=== PATIENT | female | born 1940 | race Caucasian/White ===

== ENCOUNTER 2018-05-15 09:09 | Observation (INO) ==
--- NOTE | 2018-05-15 09:34 | Emergency Department Note ---
Addendum entered and electronically signed by Dioni Ramsey DO 05/15/18 12:09: After discussing again with the patient, she now decides to stay. Will admit the patient for CP r/o ACS. Original Note: Disposition Clinical Impression: Chest pain Disposition: Home, Self-Care Condition: Fair Time of Disposition: 12:04 Chest Pain HPI - General Chief Complaint: ED Chest Pain Stated Complaint: CP Time Seen by Provider: 05/15/18 09:22 Source: patient Limitations: no limitations Vital Signs Reviewed: Yes Nursing Notes Reviewed: Yes - History of Present Illness HPI Narrative: 78-year-old female presents from home for evaluation of chest pain onset 2 days ago. Describescourse of her symptoms never compland unchanged with exertion. She described her symptoms began in his left jaw a left-sided chest ache with radiation to her left back.she did have associated nausea. patient has taken a full strength aspirin 2 this morning. Patient's is admitted to this facility. she has been traveling from home to hospital and back with little sleep. PMH: Hypertension, hyperlipidemia family history: Father had AZ at 61, paternal uncle had AZ in 40s. Patient had a heart catheter approximately 10 years ago that was reportedly clean ROS: Pos: as above Neg: fever, chills, vomiting, palpitations, trauma, abdominal pain, dysuria. Severity scale (1-10): 3 - Related Data Home Medications Medication Instructions Recorded Confirmed Aspirin [Adult Low Dose Aspirin EC] 81 mg PO DAILY 06/02/15 10/10/15 Previous Rx's Medication Instructions Recorded Albuterol Sulfate [Albuterol 2 puff IH QID #1 inhaler 04/13/16 Inhaler] Acetaminophen [Tylenol] 500 mg PO Q6HR PRN #20 tablet 08/16/17 Amoxicillin/Clavulanate [Augmentin] 500 mg PO BIDWM 5 Days #10 tablet 12/11/17 Phenazopyridine [Pyridium] 100 mg PO TID 2 Days #6 tablet 12/11/17 Nitrofurantoin Monohyd/M-Cryst 100 mg PO BID #14 capsule 12/14/17 [Macrobid 100 mg Capsule] Allergies Allergy/AdvReac Type Severity Reaction Status Date / Time ciprofloxacin Allergy See Verified 12/11/17 16:41 Comments Sulfa (Sulfonamide Allergy See Verified 12/11/17 16:41 Antibiotics) Comments Chest Pain PMH - Past Medical History Medical history: Reports: asthma, COPD, GERD, hyperlipidemia, hypertension, other Surgical history: Reports: breast surgery, cholecystectomy Psychiatric history: Reports: anxiety - Social History Smoking Status: Never smoker Alcohol use: Reports: none Drug use: Reports: none Physical Exam Vital Signs Reviewed General: Patient is alert, oriented, and in no acute distress. Head: atraumatic, normocephalic Eye: normal appearance, PERRL, EOMI, no scleral icterus, no conjunctival injection ENT: mucous membranes moist, normal external ear exam Neck: normal inspection, trachea midline, full ROM Chest: normal inspection, symmetric chest rise Respiratory: Good respiratory effort. Bilateral breath sounds are clear without wheezing, crackles, or rhonchi. Cardiovascular: Regular rate and rhythm. No clicks, rubs, gallops, or murmors. Normal heart sounds. Abdomen: Bowel sounds present normoactive. Abdomen is soft, nondistended, and nontender. No guarding or rebound. No organomegaly noted. Musculoskeletal: Spontaneously moving all extremities. Skin: warm, dry, intact. Neuro: GCS 15. No focal neurologic deficits observed. Psych: Patient's affect is appropriate for situation. - General Limitations: no limitations General appearance: alert, in no apparent distress Course Course Narrative: concern both from patient's symptoms, her age, cardiac risk factors of HTN and HLD, as well as family history. eKG dated O2 April 2018 at 09:50 interpreted as sinus rhythm at a rate of 84. CO 146, QRS 98, QTc 464. Normal axis. Non-specific STT changes. No previous EKG for comparison. Serum hematology unremarkable. Serum chemistry is unremarkable; initial troponin normal. This is not reassuring as patient's symptoms could reflect unstable angina. My attending and I discussed the above with the patient. She was recommended admission to the hosptal for continued evaluation and monitoring. She refuses. We re-iterated and re-clarified our concerns; she expressed understanding and again refused admission. Patient is of sound mind and expressed understanding of our concerns. She is leaving AMA. Vital Signs Temperature 97.7 F 05/15/18 09:16 Pulse Rate 101 05/15/18 09:16 Respiratory Rate 20 05/15/18 09:16 Blood Pressure 131/83 05/15/18 09:16 O2 Sat by Pulse Oximetry 94 05/15/18 09:16 Temperature 97.7 F 05/15/18 09:16 Pulse Rate 67 05/15/18 10:49 Respiratory Rate 19 05/15/18 10:49 Blood Pressure 119/58 05/15/18 10:49 O2 Sat by Pulse Oximetry 97 05/15/18 10:49 Oxygen Delivery Oxygen Delivery Room Air Chest Pain - Lab Data Result diagrams: 05/15/18 10:32 05/15/18 10:32 Lab Results 05/15/18 05/15/18 05/15/18 Range/Units 10:32 10:32 10:32 WBC 8.3 (4.3-11.1) K/mcL RBC 4.12 (3.82-4.97) M/mcL Hgb 13.1 (11.5-15.4) g/dL Hct 38.6 (35.3-44.9) % MCV 93.7 (83.0-100.0) fL MCH 31.8 (28.0-33.3) pg MCHC 33.9 (31.6-35.5) g/dL RDW 12.2 (11.5-14.5) % Plt Count 231 (140-400) K/mcL MPV 9.2 L (9.4-12.4) fL Immature Gran % 0.2 (0-4) % Seg Neutrophils % 54.8 % Lymphocytes % 31.3 % Monocytes % 7.1 % Eosinophils % 6.1 % Basophils % 0.5 % Neutrophils # 4.6 (1.6-8.9) K/mcL Lymphocytes # 2.6 (0.6-4.6) K/mcL Monocytes # 0.6 (0.0-1.3) K/mcL Eosinophils # 0.5 (0.0-0.6) K/mcL Basophils # 0.0 (0.0-0.2) K/mcL PT 10.9 (9.4-12.1) Seconds INR 1.0 APTT 31.7 (26.0-36.0) Seconds Sodium 138 (136-145) mEq/L Potassium 4.0 (3.5-5.1) mEq/L Chloride 101 (98-107) mEq/L Carbon Dioxide 29 (23-29) mEq/L BUN 15 (8-23) mg/dL Creatinine 1.01 (0.60-1.20) mg/dL Est GFR ( Amer) > 60 (> 60) Est GFR (Non-Af Amer) 53 L (> 60) BUN/Creatinine Ratio 15 (6-26) Glucose 107 H (70-105) mg/dL Calculated Osmolality 287 (280-300) Calcium 9.4 (8.6-10.3) mg/dL Troponin I < 0.03 (< 0.04) ng/mL Heart Score - Score History: Moderately Suspicious EKG: Non Specific repolarisation Disturbance Age: Greater than 65 Risk Factors: Equal/Greater than 3 risk factor or history of atherosclerotic disease Troponin: Less than normal limit HEART Score Total: 6 Attestation Statement - Attestation Attestation: I, Jack Melendez, examined this patient and my medical decision-making was reviewed with the SEAM STEAMER/PA/Advanced Practice Nurse/Resident Physician. I agree with the documented findings, disposition and treatment plan as described except to the extent set forth below. 78-year-old female presents emergency Department with concerns of acute onset chest pain. Patient states pain is worse with exertion, it radiates to the left jaw. Patient has been under increased stress lately as her has been hospitalized. Patient reported associated lightheadedness. No history of previous cardiac disease. Patient denies syncopal episode. Initial troponin negative. Patient agreed to stay in the hospital for further care and evaluation.
[2018-05-15 10:43] LABS: Basophils % 0.5 %; Eosinophils # 0.5 K/mcL (0.0-0.6); Eosinophils % 6.1 %; Hematocrit 38.6 % (35.3-44.9); Hemoglobin 13.1 g/dL (11.5-15.4); Immature Granulocytes % 0.2 % (0-4); Lymphocytes # 2.6 K/mcL (0.6-4.6); Lymphocytes % 31.3 %; Mean Corpuscular HGB Conc 33.9 g/dL (31.6-35.5); Mean Corpuscular Hemoglobin 31.8 pg (28.0-33.3); Mean Corpuscular Volume 93.7 fL (83.0-100.0); Mean Platelet Volume 9.2 fL (9.4-12.4); Monocytes # 0.6 K/mcL (0.0-1.3); Monocytes % 7.1 %; Neutrophils # 4.6 K/mcL (1.6-8.9); Platelet Count 231 K/mcL (140-400); Red Blood Count 4.12 M/mcL (3.82-4.97); Red Cell Distribution Width 12.2 % (11.5-14.5); Segmented Neutrophils % 54.8 %
[2018-05-15 10:51] LABS: Prothrombin Time 10.9 Seconds (9.4-12.1)
[2018-05-15 10:53] LABS: Activated Partial Thrombo Time 31.7 Seconds (26.0-36.0)
[2018-05-15 11:03] LABS: BUN/Creatinine Ratio 15 (6-26); Blood Urea Nitrogen 15 mg/dL (8-23); Calcium 9.4 mg/dL (8.6-10.3); Carbon Dioxide 29 mEq/L (23-29); Chloride 101 mEq/L (98-107); Glucose 107 mg/dL (70-105); Osmolality,Calculated 287 (280-300); Sodium 138 mEq/L (136-145); eGFR For Non-African Americans 53 (> 60)
[2018-05-15 11:04] LABS: Troponin I < 0.03 ng/mL (< 0.04)
[2018-05-15] MEDS ORDERED: Naloxone 0.4 MG/ML INJ IVP PRN (12:54)
--- NOTE | 2018-05-15 14:01 | Internal Med History&Physical ---
Date of Encounter: 05/15/18 Time of Encounter: 13:57 Internal Medicine - H&P: HPI Chief complaint: chest pain Admitted From: Home Plans for Post Hospital Care: Home History of present illness: Ms. Ventura is a 78 year old female with history of COPD not on home oxygen, GERD, hypertension and hyperlipidemia presented to the emergency department with complaint of chest pain. As per patient her chest pain started about 2 days ago while at rest. It is left-sided, pressure-like, radiating to the little left jaw, 5 out of 10 on severity, alleviated with aspirin. She reports that now her chest pain has been occurring also on exertion. She denies diaphoresis however does report nausea 1 the chest pain occurs. Last episode of the chest pain was this morning she took 2 baby aspirins which relieved the chest pain and decided to come to the emergency department for further evaluation. As per patient her is admitted to this facility and she is been traveling back and forth and under stress with little sleep. In addition she has a new puppy at home that she is worried about leaving alone. She denies fever, chills, palpitations, headache, syncope, loss of consciousness, chest trauma, prolonged immobilization, leg edema, PND or orthopnea. While in the emergency department she was found to have negative troponins EKG showed sinus rhythm with low voltages. She was endorsed for admission for further evaluation of her chest pain. Past Med Surg Social Fam HX - Past Medical History Medical history: asthma, COPD, GERD, hyperlipidemia, hypertension, other Additional medical history: AAA Psychiatric history: anxiety - Past Surgical History Surgical History: breast surgery, cholecystectomy, hysterectomy Additional surgical history: Bladder tact, heart cath - Social History Smoking Status: Never smoker Smokeless Tobacco Status: No Alcohol use: none Drug use: none Internal Medicine - H&P: Meds Albuterol Sulfate [Ventolin Hfa] 18 gm IH PRN PRN 05/15/18 [History] Fluticasone/Salmeterol [Advair Hfa 115-21 Mcg Inhaler] 12 gm IH BID 05/15/18 [History] Omeprazole [PriLOSEC] 20 mg PO DAILY 05/15/18 [History] Rosuvastatin Calcium [Crestor] 10 mg PO HS 05/15/18 [History] Verapamil HCl [Verapamil ER] 240 mg PO DAILY 05/15/18 [History] 3 Allergy/AdvReac Type Severity Reaction Status Date / Time ciprofloxacin Allergy See Verified 12/11/17 16:41 Comments Sulfa (Sulfonamide Allergy See Verified 12/11/17 16:41 Antibiotics) Comments All Systems PM: A 10-system review of systems was performed and is negative for pertinent findings except as documented above in the HPI. - Constitutional Vitals: Temp Pulse Resp BP Pulse Ox 97.8 F 61 18 131/69 96 05/15/18 13:55 05/15/18 13:55 05/15/18 13:55 05/15/18 13:55 05/15/18 13:55 Exam: General: Patient is alert, oriented, no acute distress, Head: atraumatic, normocephalic, Eye: normal appearance, PERRL, no scleral icterus, no conjunctival injection ENT: mucous membranes moist, normal external ear exam Neck: normal inspection, trachea midline, full ROM, no carotid bruits Chest: normal inspection, symmetric chest rise Respiratory: Good respiratory effort. Bilateral breath sounds are clear without wheezing, crackles, or rhonchi. Cardiovascular: Regular rate and rhythm. s1 and s2 No clicks, rubs, gallops, or murmors. Abdomen: Bowel sounds present normoactive x-4 quadrants. Abdomen is soft, nondistended. no Epigastric tenderness. No guarding or rebound. No organomegaly noted, obese musculoskeletal: Spontaneously moving all extremities. no edema, no calf tenderness Skin: warm, dry, intact. Neuro: Alert and oriented x4. No focal deficit Psych: Patient's affect is normal Internal Med - H&P Results - Labs CBC & Chem 7: 05/15/18 10:32 05/15/18 10:32 Labs: Short CBC 05/15/18 Range/Units 10:32 WBC 8.3 (4.3-11.1) K/mcL Hgb 13.1 (11.5-15.4) g/dL Hct 38.6 (35.3-44.9) % Plt Count 231 (140-400) K/mcL Neutrophils # 4.6 (1.6-8.9) K/mcL BMP 05/15/18 10:32 Sodium 138 Potassium 4.0 Chloride 101 Carbon Dioxide 29 BUN 15 Creatinine 1.01 Glucose 107 H Calcium 9.4 Cardiac Enzymes 05/15/18 Range/Units 10:32 Troponin I < 0.03 (< 0.04) ng/mL - EKG Data -: EKG Interpreted by Myself (Normal sinus rhythm, low voltages, QTC of 464) - Impressions ITS Impressions Chest X-Ray 05/15/18 09:22 IMPRESSION: 1. No active pulmonary disease. D/ / Galindo Wolf MD / Galindo Wolf MD Interpreting Provider: Galindo Wolf MD - Assessment and plan (1) Chest pain, rule out acute myocardial infarction Current Visit: Yes Status: Acute Assessment and plan: Chest pain rule out ACS First troponin is negative continued to follow every 6 hours along with EKG 2 Aspirin 81 mg daily Continue with statins Echocardiogram Consider stress test in the a.m. Continue cardiac monitoring Consider cardiology evaluation based on above results Lipid panel, TSH in the morning (2) COPD (chronic obstructive pulmonary disease) Current Visit: Yes Status: Acute Assessment and plan: Not an exacerbation Continue with home inhalers Qualifiers: COPD type: unspecified COPD Qualified Code(s): J44.9 - Chronic obstructive pulmonary disease, unspecified (3) Hypertension Current Visit: Yes Status: Acute Assessment and plan: Continue with home medications of not contraindicated Qualifiers: Hypertension type: essential hypertension Qualified Code(s): I10 - Essential (primary) hypertension (4) Hyperlipidemia Current Visit: Yes Status: Acute Assessment and plan: Continue with home statin Lipid panel in the morning Qualifiers: Hyperlipidemia type: unspecified Qualified Code(s): E78.5 - Hyperlipidemia, unspecified (5) GERD (gastroesophageal reflux disease) Current Visit: Yes Status: Acute Assessment and plan: Continue with home dose PPI Qualifiers: Esophagitis presence: esophagitis presence not specified Qualified Code(s): K21.9 - Gastro-esophageal reflux disease without esophagitis (6) DVT prophylaxis Current Visit: Yes Status: Acute Assessment and plan: Heparin subcutaneous - Time Spent With Patient Total time spent is greater than 50% in coordination of care (as documented) at patient's floor/unit and/or counseling patient:
[2018-05-15] MEDS: *HR* Heparin 5,000 UNIT/ML VIAL SQ SCH ×2 (15:19→21:02)
[2018-05-15] MEDS ORDERED: Nitroglycerin 0.4 MG TAB.SUBL SL PRN (16:39)
[2018-05-15] MEDS: Budesonide/Formoterol 80/4.5 MDI IH SCH (20:29)
[2018-05-16 03:04] LABS: Basophils # 0.1 K/mcL (0.0-0.2); Eosinophils # 0.6 K/mcL (0.0-0.6); Eosinophils % 8.3 %; Hematocrit 36.3 % (35.3-44.9); Hemoglobin 12.1 g/dL (11.5-15.4); Immature Granulocytes % 0.3 % (0-4); Lymphocytes # 2.9 K/mcL (0.6-4.6); Lymphocytes % 39.9 %; Mean Corpuscular HGB Conc 33.3 g/dL (31.6-35.5); Mean Corpuscular Hemoglobin 31.6 pg (28.0-33.3); Mean Corpuscular Volume 94.8 fL (83.0-100.0); Mean Platelet Volume 9.5 fL (9.4-12.4); Monocytes # 0.6 K/mcL (0.0-1.3); Monocytes % 8.4 %; Neutrophils # 3.1 K/mcL (1.6-8.9); Platelet Count 213 K/mcL (140-400); Red Blood Count 3.83 M/mcL (3.82-4.97); Red Cell Distribution Width 12.2 % (11.5-14.5); Segmented Neutrophils % 42.1 %
[2018-05-16 03:20] LABS: BUN/Creatinine Ratio 19 (6-26); Blood Urea Nitrogen 19 mg/dL (8-23); Carbon Dioxide 28 mEq/L (23-29); Chloride 104 mEq/L (98-107); Chol/HDL Ratio 2.6 (0-4.9); Cholesterol 112 mg/dL (< 200); Glucose 103 mg/dL (70-105); HDL Cholesterol 43 mg/dL (40-59); LDL Cholesterol,Calculated 39 mg/dL (0-99); Magnesium 1.9 mg/dL (1.6-2.6); Osmolality,Calculated 293 (280-300); Phosphorous 4.3 mg/dL (2.7-4.5); Potassium 3.4 mEq/L (3.5-5.1); Sodium 140 mEq/L (136-145); Triglycerides 149 mg/dL (< 150); eGFR For Non-African Americans 55 (> 60)
[2018-05-16] MEDS: *HR* Heparin 5,000 UNIT/ML VIAL SQ SCH (05:17)
[2018-05-16] MEDS ORDERED: Regadenoson 0.4 MG/5 ML SYRINGE IVP ONE (08:10)
[2018-05-16] MEDS: Budesonide/Formoterol 80/4.5 MDI IH SCH (08:13)
[2018-05-16] MEDS ORDERED: Aspirin Enteric Coated 81 MG Tablet PO SCH (09:00)
[2018-05-16] MEDS ORDERED: Verapamil ER (24 HR) 240 MG TABLET.ER PO SCH (09:00)
--- NOTE | 2018-05-16 10:09 | Electrocardiograph Report ---
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
[2018-05-16 10:32] VITALS: BP 127/66
--- NOTE | 2018-05-16 14:44 | Discharge Summary ---
Orders not resulted at time of discharge: Pending orders 05/15/18 16:00 ECG 12 lead ECG [ECG] Routine 05/16/18 07:50 NM harjeet perf SPECT multi [NM] Routine Date of Encounter: 05/16/18 Time of Encounter: 14:41 - Discharge Diagnosis (1) Chest pain, rule out acute myocardial infarction Priority: Primary Status: Acute (2) COPD (chronic obstructive pulmonary disease) Priority: Secondary Status: Acute Qualifiers: COPD type: unspecified COPD Qualified Code(s): J44.9 - Chronic obstructive pulmonary disease, unspecified (3) Hypertension Priority: Secondary Status: Acute Qualifiers: Hypertension type: essential hypertension Qualified Code(s): I10 - Essential (primary) hypertension (4) Hyperlipidemia Priority: Secondary Status: Acute Qualifiers: Hyperlipidemia type: unspecified Qualified Code(s): E78.5 - Hyperlipidemia, unspecified (5) GERD (gastroesophageal reflux disease) Priority: Secondary Status: Acute Qualifiers: Esophagitis presence: esophagitis presence not specified Qualified Code(s): K21.9 - Gastro-esophageal reflux disease without esophagitis (6) DVT prophylaxis Priority: Secondary Status: Acute Hospital course: Ms. Ventura is a 78 year old female past medical history of COPD, GERD, hypertension, hyperlipidemia who came in complaining of chest pain for 2 days. Patient had recent stressors in life including being hospitalized. EKG did not show any ischemic changes. Troponin remained negative. Lipid panel and TSH unremarkable. Patient underwent nuclear stress test today. Patient anxious to leave the hospital. Spoke with cardiology(Dr Galan) who review the stress test before it was transcribed and interpreted that there were no signs of ischemia. She is in otherwise stable to be discharged home to continue her home medications. Discharge discussed with: patient, nurse, wellness consultant - Time Spent with Patient Total time spent providing and/or coordinating discharge services: Greater than 30 minutes (38) - Discharge Medications Prescriptions: Tio Aspirin Enteric Coated [Aspirin EC] 81 mg PO DAILY tablet. Continue Omeprazole [PriLOSEC] 20 mg PO DAILY Albuterol Sulfate [Ventolin Hfa] 18 gm IH PRN PRN PRN Reason: Shortness Of Breath Fluticasone/Salmeterol [Advair Hfa 115-21 Mcg Inhaler] 12 gm IH BID Verapamil HCl [Verapamil ER] 240 mg PO DAILY Rosuvastatin Calcium [Crestor] 10 mg PO HS Rosuvastatin Calcium [Crestor] 10 mg PO DAILY hydroCHLOROthiazide [Hydrochlorothiazide] 25 mg PO DAILY Promethazine/Codeine [Phenergan/Codeine] 5 ml PO Q6HR PRN PRN Reason: Cough Irbesartan [Avapro] 150 mg PO DAILY Olopatadine HCl [Patanol] 5 ml OP DAILY Clorazepate [Tranxene] 15 mg PO HS Home Medications: Albuterol Sulfate [Ventolin Hfa] 18 gm IH PRN PRN 05/15/18 [History] Clorazepate [Tranxene] 15 mg PO HS 05/15/18 [History] Fluticasone/Salmeterol [Advair Hfa 115-21 Mcg Inhaler] 12 gm IH BID 05/15/18 [History] Irbesartan [Avapro] 150 mg PO DAILY 05/15/18 [History] Olopatadine HCl [Patanol] 5 ml OP DAILY 05/15/18 [History] Omeprazole [PriLOSEC] 20 mg PO DAILY 05/15/18 [History] Promethazine/Codeine [Phenergan/Codeine] 5 ml PO Q6HR PRN 05/15/18 [History] Rosuvastatin Calcium [Crestor] 10 mg PO DAILY 05/15/18 [History] Rosuvastatin Calcium [Crestor] 10 mg PO HS 05/15/18 [History] Verapamil HCl [Verapamil ER] 240 mg PO DAILY 05/15/18 [History] hydroCHLOROthiazide [Hydrochlorothiazide] 25 mg PO DAILY 05/15/18 [History] Aspirin Enteric Coated [Aspirin EC] 81 mg PO DAILY tablet. 05/16/18 [Rx] Allergies/Adverse Reactions: Allergy/AdvReac Type Severity Reaction Status Date / Time ciprofloxacin Allergy See Verified 12/11/17 16:41 Comments Sulfa (Sulfonamide Allergy See Verified 12/11/17 16:41 Antibiotics) Comments Date of admission: 05/15/18 12:20 Primary care physician: Paul Gonzalez, DO - Constitutional Vitals: Temp Pulse Resp BP Pulse Ox 97.9 F 95 20 127/66 95 05/16/18 10:31 05/16/18 10:31 05/16/18 10:31 05/16/18 10:31 05/16/18 10:31 Exam: General: In no acute distress. Conversant. anxious Respiratory exam: CTAB. no accessory muscle use, rales, rhonchi, wheezes Cardiovascular exam: RRR, +S1, +S2. no murmur, gallop, rubs. GI/Abdominal exam: Non-tender, Non-distended, normal bowel sounds, soft, no peritoneal signs. Extremities exam: full ROM, no pedal edema, warm, pulses palpable in b/l lower extremities. no calf tenderness Neurological exam: CN II-XII intact, AO X3, no focal deficits. no pronater drift, facial droop, speech deficit Skin exam: No skin rash, ulcer, purpura or ecchymosis. - Patient Status Disposition: Home, Self-Care Condition: Fair - Discharge Instructions Follow Up With: Paul Gonzalez DO [Primary Care Provider] - (Web requested 05/16/18.) Additional Instructions: Go to nearest emergency room for any new or worsening symptoms. - Diet and Activity Activity: increase activity as tolerated
--- NOTE | 2018-05-18 08:34 | Electrocardiograph Report ---
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
== END 2018-05-16 15:01 | disposition home or self-care (01) ==
LOC: EMEROOARM 09:09 → 3NENU 09:09 → SUATTDRO 12:20 → 3NENU 13:04
PROVIDERS: ADMIT Internal Medicine; ATTEND Internal Medicine